=== PATIENT | male | born 1940 | race Caucasian/White ===

== ENCOUNTER → 2019-09-05 09:47 | Outpatient (CLI) | payer MEDICARE, SELFPAY ==
--- NOTE | 2019-09-05 09:52 | XR_ITS ---
PROCEDURE: XR CHEST AP CLINICAL HISTORY: Shortness of Breat Shortness of air, heart disease COMPARISON: CXR CHEST(2 VIEWS-NOT PORTABLE) from 08/19/2014 CXR CHEST(2 VIEWS-NOT PORTABLE) from 08/12/2015 CXR CHEST(2 VIEWS-NOT PORTABLE) from 08/17/2016 FINDINGS: Prior CABG. There is hyperinflation with hyperlucency of the lungs suggesting small airway disease which may be seen with COPD, asthma, or bronchitis. No lobar consolidation or collapse. There is soft tissue density adjacent to the cardiac apex on the left and may be related to pericardial fat pad. IMPRESSION: There is hyperinflation with hyperlucency of the lungs suggesting small airway disease which may be seen with COPD, asthma, or bronchitis. No change with no acute finding. Probable pericardial fat pad on the left which may be confirmed with follow-up Dictated by: Lazaro Kelly MD 09/05/2019 18:43 Electronically signed by Lazaro Kelly MD in [place] 09/05/2019 18:43
== END ==
PROVIDERS: PCP Emergency Medicine; Visit Provider Emergency Medicine
DX: Z09 Encounter for follow-up examination after completed treatment for conditions other than malignant neoplasm (principal); I10 Essential (primary) hypertension; N40.0 Benign prostatic hyperplasia without lower urinary tract symptoms
CPT/HCPCS: 71045

== ENCOUNTER → 2019-10-03 09:01 | Outpatient (CLI) | payer MEDICARE, SELFPAY ==
--- NOTE | 2019-10-03 09:04 | XR_ITS ---
PROCEDURE: XR CHEST AP CLINICAL HISTORY: Abnormal CXR COMPARISON: CXR CHEST(2 VIEWS-NOT PORTABLE) from 08/12/2015 CXR CHEST(2 VIEWS-NOT PORTABLE) from 08/17/2016 XR CHEST AP from 09/05/2019 FINDINGS: Median sternotomy/CABG. Normal heart size. No change in the faint density noted at the cardiac apex on the left consistent with pericardial fat. Lungs are clear otherwise. No acute bony abnormalities. IMPRESSION: No change with no acute finding Dictated by: Lazaro Kelly MD 10/03/2019 12:00 Electronically signed by Lazaro Kelly MD in [place] 10/03/2019 12:00
== END ==
PROVIDERS: PCP Emergency Medicine; Visit Provider Nurse Practitioner Family
DX: R93.89 Abnormal findings on diagnostic imaging of other specified body structures (principal)
CPT/HCPCS: 71045

== ENCOUNTER 2020-08-07 18:12 | Emergency (ER) | payer MEDICARE, SELFPAY ==
[2020-08-07 19:02] VITALS: BP 127/92; PULSE 72; RESP 18; TEMP 36.7; O2SAT 97; BMI 26.8
--- NOTE | 2020-08-07 19:18 | HMH.EDUTC ---
[facility] [place] Impression: Encounter for laboratory testing for COVID-19 virus Disposition: Home, Self-Care Condition on Discharge: Good Instructions: Preventing the Spread of Coronavirus Discharge Instructions Additional Instructions: *Monitor Temp, Over the counter Motrin or Tylenol as directed/as needed Tylenol every 4 hours and Motrin every 6 hours (as long as your family doctor has told you that you can take it) for fever or pain. and straight to ER if unable to lower temp less than 101.0 after medication given *Warm salt water gargles may help to soothe the throat *Throat Lozenges *Warm fluids like tea with honey may help to soothe the throat *Sleep elevated *Humidifier/Vaporizer Follow up IMMEDIATELY for new or worsening symptoms or no Noticeable improvement over the next 48-72 hours. 911 for difficulty breathing or swallowing You was tested for today for COVID19 your test result should be back later this evening, you may call back later this evening to see if your test results are back and the result You was given a handout with instructions for Self Quarantine and Self isolation for while you wait on test results and what to do if they are positive Referrals: Mykel Salgado MD [Primary Care Provider] - As needed Forms: Work/School Release Time of Disposition: 19:26 Medical Decision Making - Wily Inquiry Pt receiving controlled substance: No Wily was queried for this patient: No Vital Signs: 08/07/20 19:02 Temperature 98.0 F Temperature Source Oral Pulse Rate [Radial] 72 Respiratory Rate 18 Blood Pressure [Right Arm] 127/92 H Blood Pressure Mean [Right Arm] 103 Blood Pressure Source [Right Arm] Automatic Cuff Blood Pressure Position [Right Arm] Sitting 02 Sat by Pulse Oximetry 97 Oxygen Delivery Method Room Air Orders (Tests/Meds): ORDERS Category Date Time Status Covid-19 Nasal PCR ([facility]) Routine Lab 08/07/20 18:45 [place] [facility] [place] - General Stated complaint: COVID Test Time Seen by Provider: 08/07/20 19:18 Mode of Arrival: Ambulatory Source of Information: Patient Limitations: No Limitations Description of Symptoms (Recalled from Triage Doc. by RN): covid testing HEENT Symptoms (Recalled from RN notes): No Resp Symptoms (Recalled from RN notes): No Skin Symptoms (Recalled from RN notes): No MS Symptoms (Recalled from RN notes): No Functional Status (Recalled from RN notes): wnl - History of Present Illness Provider Complaint: Patient states that he was around someone on Tuesday that tested positive for COVID and he was worried and wanted to get tested States that he is not having any symptoms but still wanted to get tested - Related Data Home Medications Medication Instructions Recorded Confirmed aspirin 81 mg tablet,delayed 81 mg PO ONCE 12/12/17 09/05/18 release triamcinolone acetonide 55 mcg 2 spray INTRANASAL QHS 12/12/17 09/05/18 nasal spray aerosol ezetimibe 10 mg tablet PO #90 tab 09/05/19 Previous Rx's Medication Instructions Recorded alprazolam 0.25 mg tablet 0.25 mg PO BID #180 tab 10/03/18 paroxetine HCl 20 mg tablet 20 mg PO DAILY #10 tab 12/12/19 paroxetine HCl 20 mg tablet See Rx Instructions .ROUTE 12/12/19 .COMPLEX #90 tablet rosuvastatin 40 mg tablet 40 mg PO DAILY #90 tab 01/14/20 benazepril 20 mg tablet 20 mg PO DAILY #7 tab 02/14/20 benazepril 20 mg tablet 20 mg PO DAILY #90 tab 02/14/20 finasteride 5 mg tablet 5 mg PO DAILY #10 tab 05/09/20 finasteride 5 mg tablet See Rx Instructions .ROUTE 05/09/20 .COMPLEX #90 tab Allergies Allergy/AdvReac Type Severity Reaction Status Date / Time amoxicilin AdvReac Uncoded 09/05/19 08:33 - Worker's Comp Is this a Worker's Comp case?: No [facility] History - Hepatitis A Screen Drug use history?: No High risk sexual behaviors?: No History of sexually transmitted infection?: No Currently employed?: No Childcare worker?: No Do you have indoor plumbing?: Yes Do
[2020-08-07 19:49] VITALS: BP 127/92; PULSE 72; RESP 18; TEMP 36.7; O2SAT 98
== END 2020-08-07 19:50 | disposition home or self-care (01) ==
PROVIDERS: Emergency Provider Nurse Practitioner; PCP Emergency Medicine
DX: Z20.828 Contact with and (suspected) exposure to other viral communicable diseases (principal); I10 Essential (primary) hypertension; E78.5 Hyperlipidemia, unspecified; F33.1 Major depressive disorder, recurrent, moderate; Z79.899 Other long term (current) drug therapy
CPT/HCPCS: G0463; 99201; U0003

== ENCOUNTER → 2020-09-08 10:02 | Outpatient (CLI) | payer MEDICARE, SELFPAY ==
--- NOTE | 2020-09-08 10:06 | XR_ITS ---
PROCEDURE: XR CHEST 2V CLINICAL HISTORY: shortness of breath COMPARISON: CR CXR CHEST(2 VIEWS-NOT PORTABLE) from 08/17/2016 DX XR CHEST AP from 09/05/2019 CR XR CHEST AP from 10/03/2019 FINDINGS: Prior CABG. Normal heart size The lungs are clear without infiltrates, suspicious nodules, or pleural effusions. Mild degenerative changes thoracic spine. IMPRESSION: CABG. No change with no acute finding Dictated by: Lazaro Kelly MD 09/08/2020 10:32 Lazaro Kelly MD in [place] 09/08/2020 10:32
== END ==
PROVIDERS: PCP Emergency Medicine; Visit Provider Emergency Medicine
DX: R06.02 Shortness of breath (principal)
CPT/HCPCS: 71046

== ENCOUNTER 2020-09-12 14:29 | Emergency (ER) | payer MEDICARE, SELFPAY ==
[2020-09-12] VITALS (11 sets, daily range): BP systolic 96–169; BP diastolic 54–99; PULSE 56–89; RESP 12–20; TEMP 36.9; O2SAT 97–100; BMI 26.4
--- NOTE | 2020-09-12 14:37 | XR_ITS ---
PROCEDURE: XR WRIST LT MIN 3V CLINICAL INDICATION: fall Pain COMPARISON: No exams were available for comparison FINDINGS: Comminuted impacted fracture involves the distal radius with intra-articular involvement. There is dorsal angulation of the distal fracture fragment. There is dorsal displacement a dorsal fracture fragment with foreshortening of the fragment. 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 IMPRESSION: Comminuted fracture distal radius Dictated by: Lazaro Kelly MD 09/12/2020 15:43 Lazaro Kelly MD in [place] 09/12/2020 15:43
--- NOTE | 2020-09-12 14:38 | HMH.EDGENADL ---
ED Disposition Clinical Impression: Colles' fracture of left radius Qualifiers: Encounter type: initial encounter Fracture type: closed Qualified Code(s): S52.532A - Colles' fracture of left radius, initial encounter for closed fracture Disposition: Home, Self-Care Condition on Discharge: Good Instructions: DI for Moderate Sedation Additional Instructions: Follow-up with orthopedics on Tuesday. Leave splint in place. Do not drive when taking pain medication. Referrals: Mykel Salgado MD [Primary Care Provider] - 3 days Time of Disposition: 16:58 - Critical Care Critical Care Time: No Attestation: On , the high probability of a clinically significant, sudden or life threatening deterioration of the following system(s) required my full and direct attention, intervention and personal management. The time I documented below is in addition to time spent performing reported procedures but includes the following listed in this critical care notation. Medical Decision Making - Wily Inquiry Pt receiving controlled substance: No Wily was queried for this patient: No Vital Signs: 09/12/20 14:31 09/12/20 14:36 09/12/20 15:31 Pulse Rate [Radial] 70 78 Respiratory Rate 20 18 Blood Pressure [Right Arm] 169/82 H 158/67 H Blood Pressure Mean [Right Arm] 111 97 Blood Pressure Source [Right Arm] Automatic Cuff Automatic Cuff Blood Pressure Position [Right Arm] Sitting Sitting 02 Sat by Pulse Oximetry 97 98 Oxygen Delivery Method Room Air Nasal Cannula Oxygen Flow Rate (LPM) 3 09/12/20 15:45 09/12/20 15:50 09/12/20 15:55 Pulse Rate [Radial] 71 56 L 67 Respiratory Rate 16 17 18 Blood Pressure [Right Arm] 96/54 L 160/76 H 145/70 H Blood Pressure Mean [Right Arm] 68 104 95 Blood Pressure Source [Right Arm] Automatic Cuff Automatic Cuff Automatic Cuff Blood Pressure Position [Right Arm] Supine Supine Supine 02 Sat by Pulse Oximetry 97 97 99 Oxygen Delivery Method Room Air Nasal Cannula Nasal Cannula Oxygen Flow Rate (LPM) 2 2 09/12/20 16:01 09/12/20 16:04 09/12/20 16:12 Pulse Rate [Radial] 74 68 84 Respiratory Rate 18 18 18 Blood Pressure [Right Arm] 160/76 H 158/67 H 137/99 H Blood Pressure Mean [Right Arm] 104 97 111 Blood Pressure Source [Right Arm] Automatic Cuff Automatic Cuff Automatic Cuff Blood Pressure Position [Right Arm] Sitting Supine Sitting 02 Sat by Pulse Oximetry 97 98 99 Oxygen Delivery Method Nasal Cannula Room Air Nasal Cannula Oxygen Flow Rate (LPM) 3 2 09/12/20 16:30 Pulse Rate [Radial] 67 Respiratory Rate 16 Blood Pressure [Right Arm] 138/73 Blood Pressure Mean [Right Arm] 94 Blood Pressure Source [Right Arm] Automatic Cuff Blood Pressure Position [Right Arm] Sitting 02 Sat by Pulse Oximetry 100 Oxygen Delivery Method Nasal Cannula Oxygen Flow Rate (LPM) 3 Orders (Tests/Meds): ED MEDICATIONS Discontinued Medications Generic Name Dose Route Start Last Admin Trade Name Freq PRN Reason Stop Dose Admin Sodium Chloride 1,000 mls @ 999 mls/hr 09/12/20 15:45 09/12/20 15:30 Sod Chlor 0.9% 1000ml Bag IV 09/12/20 16:45 999 mls/hr .Q1H1M JAN Administration Morphine Sulfate 2 mg 09/12/20 15:35 09/12/20 15:30 Morphine 2mg/Ml Syringe IV 09/12/20 15:36 2 mg ONCE ONE Administration Ondansetron HCl 4 mg 09/12/20 15:35 09/12/20 15:30 Ondansetron 4mg/2ml Vial IV 09/12/20 15:36 4 mg ONCE ONE Administration Propofol 100 mg 09/12/20 15:45 09/12/20 16:00 Propofol 10mg/Ml 20ml Vial IV 09/12/20 15:46 100 mg ONCE ONE Administration ORDERS Category Date Time Status Wrist XR left 2 views [XR wrist LT 2V] Stat Exams 09/12/20 15:49 Taken - Radiology Data #1 Image(s): Wrist Image Reviewed: Yes I reviewed the patient's radiology results, Yes I reviewed the patient's radiology image Distal radius fracture with posterior angulation and compaction #2 Image(s): Wrist Postreduction film. Reduced angle posterior angulatio
--- NOTE | 2020-09-12 15:49 | XR_ITS ---
PROCEDURE: XR WRIST LT 2V....... September 12 2020 at 1612 hours Referring Doctor: Silver Tello Patient Age:79Y CLINICAL INDICATION: post reduction left wrist Left wrist fracture post reduction images COMPARISON: CR XR WRIST LT MIN 3V from 09/12/2020 FINDINGS: Cast is been placed after reduction/partial reduction of the comminuted fracture of the distal radius. Most evident fracture passes obliquely through the base of the radial styloid continuing to the articular surface There is also fracture involving the ulnar corner distal radius and anterior corner of corner distal radius with each of these fractures I believe passing to more central articular surface region. The initial severe dorsal tilt of the distal fracture fragments is improved somewhat on this post reduction image..-specifically for example there is less dorsal displacement of the lunate relative to the ulna and radius. The foreshortening of distal radius but is not as pronounced as was on the initial film earlier today. A fiberglass cast is now in place. Arthritic changes are seen noted at the 1st carpal-metacarpal joint and scaphoid-trapezium articulation. The initial film shows some inhomogeneous slight increased density at the proximal navicular with some suggestion of minimal degenerative cystic changes at central navicular. These features are obscured for the most part due to the overlying cast material on this study, but may benefit from follow-up as well. IMPRESSION: . Comminuted fractures at the distal radius, which extend to the articular surface . Improved positioning on on this post reduction study with fiberglass cast now in place Dictated by: Lui Dimas MD 09/13/2020 17:09 Lui Dimas MD in [place] 09/13/2020 17:09
--- NOTE | 2020-09-12 16:02 | PC.NURSE ---
XRAY HERE FOR POST REDUCTION FILM
--- NOTE | 2020-09-12 16:15 | PC.NURSE ---
1545- Proprofol given per MD 1600- patient is alert and oriented at this time. Splint in place.
== END 2020-09-12 17:17 | disposition home or self-care (01) ==
PROVIDERS: Emergency Provider Family Medicine; PCP Emergency Medicine
DX: S52.532A Colles' fracture of left radius, initial encounter for closed fracture (principal); W01.0XXA Fall on same level from slipping, tripping and stumbling without subsequent striking against object, initial encounter; Y92.017 Garden or yard in single-family (private) house as the place of occurrence of the external cause; I10 Essential (primary) hypertension
CPT/HCPCS: 29125; 73100; 73110; 96365; 96375; 99152; 99285; J2405

== ENCOUNTER → 2020-09-23 11:12 | Outpatient (CLI) | payer MEDICARE, SELFPAY ==
[2020-09-23 11:16] LABS: MANUAL DIFFERENTIAL MANUAL DIFFERENTIAL (MANUAL DIFF)
[2020-09-23 11:35] LABS: Basophils # 0.1 K/mm3 (0-0.2); Basophils % 0.8 % (0.1-2.0); Eosinophils # 0.2 K/mm3 (0.0-0.4); Eosinophils % 3.1 % (0.1-12.0); Hematocrit 39.8 % (42.0-52.0); Hemoglobin 13.5 g/dL (14.1-18.0); Lymphocytes # 1.8 K/mm3 (0.7-4.5); Lymphocytes % 27.7 % (10-50); Mean Corpuscular HGB Conc 33.9 g/dL (31.8-35.4); Mean Corpuscular Hemoglobin 31.4 pg (27.0-31.2); Mean Corpuscular Volume 92.5 fl (80-94); Mean Platelet Volume 8.2 fl (7.4-10.4); Monocytes # 0.6 K/mm3 (0.1-1.0); Monocytes % 9.8 % (1.7-9.3); Neutrophils # 3.7 K/mm3 (1.8-7.8); Neutrophils % 58.6 % (37.0-80.0); Platelet Count 325 K/mm3 (142-424); Red Cell Distribution Width 13.2 % (11.5-17.5); White Blood Count 6.3 K/mm3 (4.8-10.8)
[2020-09-23 12:21] LABS: Chloride 101 mmol/L (98-107); Potassium 4.9 mmoL/L (3.5-5.1); Sodium 139 mmol/L (136-145)
[2020-09-23 12:23] LABS: Blood Urea Nitrogen 17 mg/dl (9-20); Estimated Glomerular Filt Rate 72 ml/min (>60); GFR (African American) 87 ML/MIN (>60)
[2020-09-23 12:24] LABS: Alanine Aminotransferase 51 U/L (12-78); Albumin Level 4.3 g/dl (3.5-5.0); Albumin/Globulin Ratio 1.7 (1.1-1.8); Alkaline Phosphatase 49 U/L (38-126); Anion Gap 10.9 mEq/L (5-15); Aspartate Amino Transferase 60 U/L (17-59); Bilirubin,Total 0.9 mg/dl (0.2-1.3); Calcium 9.5 mg/dl (8.4-10.2); Carbon Dioxide 32 mmol/L (22.0-30.0); Globulin 2.5 g/dL (1.3-3.2); Glucose 86 mg/dl (74-100); Total Protein,Serum 6.8 g/dl (6.3-8.2)
[2020-09-23 13:07] LABS: Coronavirus 19 IgG Antibody Negative (Negative); Coronavirus 19 IgM Antibody Negative (Negative)
[2020-09-23 13:40] LABS: Eosinophils % 1 % (0-3); Lymphocytes % 18 % (10-50); Monocytes % 10 % (2-9); Neutrophils % 71 % (42-76); Platelet Estimate Normal; RBC Morphology Normal; Total Cells Counted 100
== END ==
PROVIDERS: Visit Provider Orthopaedic Surgery
DX: S62.102A Fracture of unspecified carpal bone, left wrist, initial encounter for closed fracture (principal); Z01.818 Encounter for other preprocedural examination; Z03.818 Encounter for observation for suspected exposure to other biological agents ruled out
CPT/HCPCS: 36415; 80053; 85007; 85014; 85018; 85048; 85049; 86328

== ENCOUNTER 2020-09-25 09:35 | Day surgery (SDC) | payer MEDICARE, SELFPAY ==
[2020-09-25] VITALS (12 sets, daily range): BP systolic 133–179; BP diastolic 57–109; PULSE 64–77; RESP 12–18; TEMP 36.4–43; O2SAT 93–99; BMI 26.8
--- NOTE | 2020-09-25 10:36 | P.PN_ITS ---
[facility] Anesthesia Checklist - Patient Identification Patient Identification: Arm Band, Verbal (Name & ) - Structural Data Admitted From: Home Planned Operative Procedure/s: orif wrist Consent for Planned Operative Procedure(s) Verified: Yes Verified Documents: History and Physical - NPO Status Verified Time NPO: 00:00 - Chart Verification Results Verified: CBC, BMP - Additional verifications Patient : No Anesthesia Reactions: No Hx Blood Transfusions: No Blood Transfusion Reaction: No Cephalosporin Allergy: No Previous Colonoscopy: No - Cardiovascular Assessment Heart Sounds: S1 & S2 Pulse Strength: Baseline Pulse Rhythm: Regular Peripheral Edema: No - Airway Assessment C-Spine Mobility Assessed: Yes TMJ Mobility Assessed: Yes Dentition: Good Dentition - Neurological Assessment Level of Consciousness: Awake, Alert, Appropriate Hx Seizures: No Numbness or tingling in extremities: No - Anesthesia Plan Anesthesia Risk discussed: Yes Anesthesia Plan: Verified ASA Class: III Anesthesia Type: General w/block [facility] History I have reviewed the patient's past medical history: Yes Medical History: Reports:: Coronary Artery Disease, Depression, Hyperlipidemia, Hypertension, 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 No: Pacemaker Amputation: No Fractures: Yes - *Social History Last grade of school completed: Advanced degree Smoking Status: Never smoker Alcohol Intake: never Substance Use Type: denies use *Occupational Status:: other Housing: house Household Members: spouse *Travel in the last 8 weeks: None - Psychiatric History Pschychiatric History:: Reports:: Depression Family Hx:: Hypertension, Hyperlipidemia, Coronary Artery Disease
--- NOTE | 2020-09-25 13:31 | XR_ITS ---
PROCEDURE: XR WRIST LT 2V CLINICAL INDICATION: ORIF WRIST IN OR COMPARISON: CR XR WRIST LT 2V from 09/12/2020 FINDINGS: Fluoroscopy time: 2 minutes and 25 seconds Initially an external fixator was placed at the 2nd metacarpal with reduction the impacted fracture with 2 K-wires placed with good alignment of the fracture fragments. Suggest postop film for confirmation. IMPRESSION: Status post ORIF comminuted distal radial fracture as described above Dictated by: Lazaro Kelly MD 09/25/2020 14:42 Lazaro Kelly MD in [place] 09/25/2020 14:42
--- NOTE | 2020-09-25 14:06 | HMH.ANESI ---
[facility] Anesthesia Record Part I Intake, IV Amount: 1,500 Estimated blood loss (mL): 0 Urine output (mL): 0 Blood Pressure: 170/90 SaO2: 94 Pulse Rate: 77 Respiratory Rate: 12 Temperature: 97.6 F Patient is:: Awake, Stable Stable to PACU at:: 14:05
--- NOTE | 2020-09-25 14:21 | XR_ITS ---
PROCEDURE: XR WRIST LT 2V CLINICAL INDICATION: s/p ORIF L DRF Follow-up ORIF COMPARISON: CR XR WRIST LT 2V from 09/12/2020 CR XR WRIST LT MIN 3V from 09/12/2020 FINDINGS: A dorsal bone plate has been placed with cortical screws in the 2nd metacarpal and in the mid radius. Two K-wires are present at the distal radial region with reduction the impacted radial fracture. There is good alignment. There is a cast in place. IMPRESSION: Status post ORIF distal radial fracture with good alignment Dictated by: Lazaro Kelly MD 09/25/2020 14:46 Lazaro Kelly MD in [place] 09/25/2020 14:46
--- NOTE | 2020-09-25 14:30 | HMH.OPNOTE ---
Date of procedure: 09/25/20 Pre-op Diagnosis:: LEFT distal radius fracture Post-op Diagnosis:: same Procedure performed:: closed reduction, dorsal bridge plating, percutaneous pinning LEFT distal radius fracture Surgeon:: Brooke Collier MD Airplane Tester(s):: NELY Knapp CEMENTER MACHINE APPLICATOR:: Mio Cait Anesthesia: regional, LMA Estimated blood loss (mL): 15 Clinical Note:: 79-year-old ambidextrous gentleman who sustained an injury to the left wrist on 09/12/2020. He tripped over a tool lying on the ground and fell with the outstretched left arm onto the ground, which was dirt. No open wounds but significant pain and swelling noted. He presented to the ER where a comminuted distal radius fracture was identified and reduced. He does not report any numbness or tingling in the fingers. He is a avid golfer and leads a very active lifestyle, and use of his hand/wrist is very important to him. I discussed treatment options with the patient, and as the fracture is significantly comminuted and intra-articular, with at least 3 main fracture fragments and very little articular bone distally, I felt surgical treatment is indicated. I discussed surgical fixation with the patient and I feel the best course of action to restore normal anatomic parameters and allow better long-term function is for dorsal bridge plating. I do not feel there is enough distal bone to accommodate a volar plate without failure. I discussed the risks of surgery with the patient, including but not limited to: bleeding, infection, wound healing complications such as incisional necrosis, nonunion, persistent pain despite surgery, postoperative stiffness, need for revision surgery, and risk of complex regional pain syndrome. I also explained the need for eventual plate removal after the fracture has healed. The patient vocalized understanding and provided informed consent for the procedure. Operative findings:: [employer] Geminus dorsal spanning plate (long plate) distal screws: 3.0mm x3 (2 non-locking, 1 locking) proximal screws: 3.0mm x3 (2 non-locking, 1 locking) 1.5mm K-wires x2 implanted, cut and buried under skin Operative note:: The patient was identified in preoperative holding and the left arm signed by myself. Consent was verified with the patient and all questions answered. He was seen by anesthesia and supraclavicular nerve block administered to the left upper extremity. The patient was then transferred to the OR and placed supine on the operative table with a hand table under the left upper extremity. All bony prominences were well-padded and SCDs placed on bilateral lower extremities. 900mg clindamycin was infused and general anesthesia induced with an LMA. Once the patient was asleep, his splint was removed and a nonsterile tourniquet placed on the upper left arm. The arm was then prepped and draped in the usual sterile fashion. Timeout was performed, identifying the correct patient, correct procedure, and correct site. The procedure was begun by bringing in the C-arm to confirm the site of the fracture in the left distal radius. A nice reduction had been performed in the emergency department at the time of his injury, so little manipulation of the arm was necessary to achieve overall normal gross alignment of the distal radius. The left arm was exsanguinated with an Esmarch and the tourniquet inflated to 250 mmHg. Three incisions were made, all longitudinal in line with the long axis of the left forearm. The first incisions was 3cm in length, over the dorsum of the hand centered over the index metacarpal shaft. Skin was incised and subcutaneous tissue bluntly dissected with tenotomy scissors, and a ragnell used to retract the extensor tendon ulnarly; this exposed the underlying index metacarpal shaft. The second incision was then made, 2cm in length, directly over the dorsum of the radiocarpal joint. Again, subcutaneous dissection was bluntly performed and the extensor re
--- NOTE | 2020-09-25 19:10 | P.PN_ITS ---
[facility] Anesthesia Record Part II Discharge Time: 14:41 Destination: Surgical Day Care (OP Surgery) PACU nurse assessment reviewed?: Yes Patient Condition:: Good Anesthesia Complications:: None Swallowing reflex intact?: Yes Cyanosis?: No Blood Pressure: 142/87 Pulse Rate: 71 Temperature: 97.6 F Mental Status: Alert & Oriented Pain level:: 0 Nausea and/or vomitting:: None Intake, IV Amount: 0
== END 2020-09-25 15:16 | disposition home or self-care (01) ==
LOC: OR 09:38
PROVIDERS: PCP Emergency Medicine; Visit Provider Orthopaedic Surgery
PROC: 0PSJ04Z Reposition Left Radius with Internal Fixation Device, Open Approach (ICD-10-PCS; CPT 25609; principal; 2020-09-25 11:30)
DX: S52.572A Other intraarticular fracture of lower end of left radius, initial encounter for closed fracture (principal); I25.10 Atherosclerotic heart disease of native coronary artery without angina pectoris; I10 Essential (primary) hypertension; E78.5 Hyperlipidemia, unspecified; Z79.899 Other long term (current) drug therapy; Z79.82 Long term (current) use of aspirin; Z88.0 Allergy status to penicillin; W01.0XXA Fall on same level from slipping, tripping and stumbling without subsequent striking against object, initial encounter; Y92.014 Private driveway to single-family (private) house as the place of occurrence of the external cause
CPT/HCPCS: 25609; 73100; 76000; 96374; C1713; C1776; J2405

== ENCOUNTER → 2020-10-07 09:46 | Outpatient (CLI) | payer MEDICARE, SELFPAY ==
--- NOTE | 2020-10-07 09:49 | XR_ITS ---
PROCEDURE: XR WRIST LT MIN 3V CLINICAL INDICATION: s/p ORIF DRF- dos: 09/25/20 Follow-up surgery/fracture COMPARISON: CR XR WRIST LT 2V from 09/12/2020 CR XR WRIST LT MIN 3V from 09/12/2020 CR XR WRIST LT 2V from 09/25/2020 FINDINGS: There is a cast in place. The dorsally placed bone plate is once again noted with good alignment of the distal radial fracture with [address]. Fracture site is still present and slightly more prominent. The joint spaces are well-preserved. No significant degenerative/arthritic changes. No erosive changes evident. Other findings:None. IMPRESSION: Good alignment distal radial fracture with [address] stabilized by dorsal bone plate Dictated by: Lazaro Kelly MD 10/07/2020 16:33 Lazaro Kelly MD in [place] 10/07/2020 16:33
== END ==
PROVIDERS: PCP Emergency Medicine; Visit Provider Orthopaedic Surgery
DX: S52.502A Unspecified fracture of the lower end of left radius, initial encounter for closed fracture (principal)
CPT/HCPCS: 73110

== ENCOUNTER 2020-10-07 10:46 | Outpatient (RCR) | payer MEDICARE, SELFPAY | END 2020-10-07 11:50 | disposition home or self-care (01) | LOC: OT 10:46 | PROVIDERS: Visit Provider Orthopaedic Surgery | DX: S52.502A Unspecified fracture of the lower end of left radius, initial encounter for closed fracture (principal) | CPT/HCPCS: 97763 ==

== ENCOUNTER → 2020-11-07 09:15 | Outpatient (CLI) | payer MEDICARE, SELFPAY ==
--- NOTE | 2020-11-07 09:21 | XR_ITS ---
PROCEDURE: XR WRIST LT MIN 3V CLINICAL INDICATION: ORIF LT DRF- DOS: 09/25/2020 COMPARISON: CR XR WRIST LT 2V from 09/12/2020 CR XR WRIST LT MIN 3V from 09/12/2020 CR XR WRIST LT 2V from 09/25/2020 CR XR WRIST LT MIN 3V from 10/07/2020 FINDINGS: The long dorsal bone plate from the distal radius to the 2nd metacarpal is once again noted. There are 2 K-wires at the distal radius which are unchanged. There is healing distal radial fracture with good alignment. Callus formation is noted developing. The cast has been removed. IMPRESSION: Good alignment status post ORIF as described above with healing distal radial fracture. Dictated by: Lazaro Kelly MD 11/07/2020 11:38 Lazaro Kelly MD in [place] 11/07/2020 11:38
== END ==
PROVIDERS: PCP Emergency Medicine; Visit Provider Orthopaedic Surgery
DX: S52.502A Unspecified fracture of the lower end of left radius, initial encounter for closed fracture (principal)
CPT/HCPCS: 73110

== ENCOUNTER → 2020-12-08 09:31 | Outpatient (CLI) | payer MEDICARE, SELFPAY ==
--- NOTE | 2020-12-08 09:37 | XR_ITS ---
PROCEDURE: XR WRIST LT MIN 3V CLINICAL INDICATION: s/p closed reduction with dorsal bridge plating Follow-up fracture COMPARISON: CR XR WRIST LT 2V from 09/12/2020 CR XR WRIST LT 2V from 09/25/2020 CR XR WRIST LT MIN 3V from 10/07/2020 CR XR WRIST LT MIN 3V from 11/07/2020 FINDINGS: A dorsal bridging bone plate is present with screws at the junction of the mid distal 3rd the radius the and at the 2nd metacarpal. There is good alignment of the distal radial fracture with 2 K-wires present. Fracture line is still visible. There is some developing callus formation noted. IMPRESSION: Good alignment healing distal radial fracture status post ORIF as described above Dictated by: Lazaro Kelly MD 12/08/2020 11:44 Lazaro Kelly MD in [place] 12/08/2020 11:44
== END ==
PROVIDERS: PCP Emergency Medicine; Visit Provider Orthopaedic Surgery
DX: S52.532A Colles' fracture of left radius, initial encounter for closed fracture (principal)
CPT/HCPCS: 73110

== ENCOUNTER → 2020-12-20 10:06 | Outpatient (CLI) | payer MEDICARE, SELFPAY ==
[2020-12-20 11:24] LABS: Coronavirus 19 IgG Antibody Positive (Negative); Coronavirus 19 IgM Antibody Negative (Negative)
== END ==
PROVIDERS: Visit Provider Internal Medicine Gastroenterology
DX: Z01.812 Encounter for preprocedural laboratory examination (principal)
CPT/HCPCS: 36415; 86328

== ENCOUNTER 2020-12-22 12:24 | Day surgery (SDC) | payer MEDICARE, SELFPAY ==
[2020-12-22 12:41] VITALS: BP 204/88; PULSE 74; RESP 18; TEMP 36; O2SAT 99; BMI 26.0
--- NOTE | 2020-12-22 13:19 | P.PN_ITS ---
[facility] Anesthesia Checklist - Patient Identification Patient Identification: Arm Band - Structural Data Planned Operative Procedure/s: Colonscopy Consent for Planned Operative Procedure(s) Verified: Yes - Additional verifications Anesthesia Reactions: No Hx Blood Transfusions: No Blood Transfusion Reaction: No - Cardiovascular Assessment Heart Sounds: S1 & S2 Pulse Strength: Baseline Pulse Rhythm: Regular - Neurological Assessment Level of Consciousness: Awake - Anesthesia Plan Anesthesia Risk discussed: Yes Anesthesia Plan: Verified Anesthesia Type: MAC [facility] History I have reviewed the patient's past medical history: Yes Medical History: Reports:: Coronary Artery Disease, Depression, Hyperlipidemia, Hypertension Denies:: Cancer, Diabetes Mellitus Type 1, Diabetes Mellitus Type 2, Internal Pacemaker, MRSA, Seizures *Have you ever received a pneumonia vaccine?: Yes *Have you received a flu vaccine this season?: Yes Other Medical History: Denies: Blood Transfusion Reaction Anesthesia experience/problems:: None Laterality Cases: Left: Other Other Surgeries: Yes: Cardiac Catheterization, Cardiac Surgery, Colonoscopy. No: Pacemaker Amputation: No Fractures: Yes (wrist) - *Social History Smoking Status: Never smoker Alcohol Intake: never Substance Use Type: denies use *Occupational Status:: retired Housing: house Household Members: spouse *Travel in the last 8 weeks: None - Psychiatric History Pschychiatric History:: Reports:: Depression Family Hx:: Hypertension, Hyperlipidemia, Coronary Artery Disease
--- NOTE | 2020-12-22 14:25 | P.PCN_ITS ---
[facility] Procedure Note Procedure Note:: Colonoscopy Procedure Report: Colonoscopy with cold snare polypectomy Endoscopist: Preet Mane II, MD Referring physician: Mykel Salgado MD Date of Procedure: December 22, 2020 Equipment: Olympus 190 variable stiffness pediatric colonoscope Sedation: MAC sedation Indication: Mr. Mead is an 80-year-old gentleman who states that recently he received the pneumonia 23 and COVID-19 shot and had a reaction that was primarily digestive. He received the vaccination on November 05 and had symptoms that began on November 06. He noted some low-grade fever and chills and mucus with his bowel movements. He developed diarrhea with minor rectal bleeding. He had a finger staph infection in 1976 or 1977 and had a penicillin shot which resulted in this similar reaction. The patient has returned to normal and reports normal bowel function. He reports no further rectal bleeding, abdominal pain or weight loss. He reports no family history of colon cancer. This is his third colonoscopy and his last colonoscopy was 4 years ago (2017 in [facility]) at which time a couple of benign polyps were removed. Procedure: Prior to the procedure, a history and physical exam was performed, and patient's medications and allergies were reviewed. The risks, benefits and alternatives of the sedation and procedure were discussed with the patient. All questions were answered and informed consent was obtained. The patient was brought to the procedure room. Patient identification and proposed procedure were verified by the physician and the nurse. The patient was placed in a left lateral decubitus position and the scope was passed under direct vision. Throughout the procedure, the patient's blood pressure, pulse, and oxygen saturations were monitored continuously. The colonoscopy was accomplished without difficulty. The patient tolerated the procedure well. Findings: On digital rectal examination there was normal rectal tone. There were no external hemorrhoids. The prostate was 2+, smooth, soft, symmetric without nodules. The colonoscope was introduced through the anal canal to the rectum and advanced to the cecum. The ileocecal valve and appendiceal orifice were identified. The scope was advanced a short distance into the ileum which appeared grossly normal. The scope was then withdrawn into the colon. There were 2 diminutive polyps (ascending x1 (4 mm) and descending x1 (3 mm)) which were both removed via cold snare polypectomy. The remaining cecum, ascending and transverse colon and mucosa were grossly normal. There were scattered diverticuli throughout the descending and sigmoid colon (LEFT colon). The rectum itself was normal. Upon retroflexion within the rectum there were grade 1-2 internal hemorrhoids. The preparation was excellent throughout with Channing Preparation Score of 9. The cecal time was 12 minutes. Impression: 1. Diminutive colonic polyps x2 2. Left-sided diverticulosis 3. Grade 1-2 internal hemorrhoids Plan: I will follow up the polyp histology. The patient will not require any further preventive/screening colonoscopy. I would encourage bulk fiber supplementation on a maintenance basis.
[2020-12-22 14:26] VITALS: BP 128/70; PULSE 65; RESP 14; TEMP 36.5; O2SAT 99
[2020-12-22 14:36] VITALS: BP 130/75; PULSE 59; RESP 18; O2SAT 100
[2020-12-22 14:46] VITALS: BP 133/82; PULSE 64; RESP 18; O2SAT 96
[2020-12-22 15:03] VITALS: BP 142/74; PULSE 55; RESP 18; O2SAT 100
== END 2020-12-22 15:09 | disposition home or self-care (01) ==
LOC: OUTP 12:26
PROVIDERS: PCP Emergency Medicine; Visit Provider Internal Medicine Gastroenterology
PROC: 0DJD8ZZ Inspection of Lower Intestinal Tract, Via Natural or Artificial Opening Endoscopic (ICD-10-PCS; CPT 45378; principal; 2020-12-22 13:30)
DX: Z86.19 Personal history of other infectious and parasitic diseases; Z86.010 Personal history of colon polyps; K63.5 Polyp of colon; K57.30 Diverticulosis of large intestine without perforation or abscess without bleeding; K64.0 First degree hemorrhoids; Z86.16 Personal history of COVID-19; Z87.01 Personal history of pneumonia (recurrent); I25.10 Atherosclerotic heart disease of native coronary artery without angina pectoris; I10 Essential (primary) hypertension; E78.5 Hyperlipidemia, unspecified; F32.9 Major depressive disorder, single episode, unspecified; Z79.899 Other long term (current) drug therapy
CPT/HCPCS: 45385; 88305

== ENCOUNTER → 2021-01-23 09:12 | Outpatient (CLI) | payer MEDICARE, SELFPAY ==
--- NOTE | 2021-01-23 09:18 | XR_ITS ---
PROCEDURE: XR WRIST LT MIN 3V CLINICAL INDICATION: s/p ORIF LT DRF Follow-up fracture/ORIF COMPARISON: CR XR WRIST LT 2V from 09/25/2020 CR XR WRIST LT MIN 3V from 10/07/2020 CR XR WRIST LT MIN 3V from 11/07/2020 CR XR WRIST LT MIN 3V from 12/08/2020 FINDINGS: There remains a dorsal bone plate stabilized at the mid and distal aspect the 2nd metacarpal and in the mid to distal shaft of the radius with cortical screws. There are 2 K-wires present within the distal radial fracture with good alignment. Fracture lines are less visible consistent with healing. There is some periosteal calcification along the medial aspect of the distal radius. Other findings:None. IMPRESSION: Healing fracture distal radius status post ORIF and pinning Dictated by: Lazaro Kelly MD 01/23/2021 13:12 Lazaro Kelly MD in [facility] 01/23/2021 13:12
== END ==
PROVIDERS: PCP Emergency Medicine; Visit Provider Orthopaedic Surgery
DX: S52.502A Unspecified fracture of the lower end of left radius, initial encounter for closed fracture (principal)
CPT/HCPCS: 73110

== ENCOUNTER → 2021-01-26 09:44 | Outpatient (CLI) | payer MEDICARE, SELFPAY ==
[2021-01-26 11:11] LABS: Coronavirus 19 IgG Antibody Positive (Negative); Coronavirus 19 IgM Antibody Negative (Negative)
== END ==
PROVIDERS: Visit Provider Orthopaedic Surgery
DX: S52.502A Unspecified fracture of the lower end of left radius, initial encounter for closed fracture (principal); Z01.818 Encounter for other preprocedural examination; Z20.822 Contact with and (suspected) exposure to COVID-19
CPT/HCPCS: 86328

== ENCOUNTER 2021-01-27 06:11 | Day surgery (SDC) | payer MEDICARE, SELFPAY ==
[2021-01-27 06:34] VITALS: BP 172/112; PULSE 69; RESP 18; TEMP 36.4; O2SAT 97; BMI 27.6
--- NOTE | 2021-01-27 08:32 | HMH.ANESCL ---
[facility] Anesthesia Checklist - Patient Identification Patient Identification: Arm Band - Structural Data Admitted From: Home Planned Operative Procedure/s: Left Wrist Hardware Removal Consent for Planned Operative Procedure(s) Verified: Yes Verified Documents: Surgical Consent, History and Physical - NPO Status Verified Time NPO: 00:00 - Additional verifications Anesthesia Reactions: No Hx Blood Transfusions: No Blood Transfusion Reaction: No - Airway Assessment C-Spine Mobility Assessed: Yes (mp2) TMJ Mobility Assessed: Yes Dentition: Good Dentition - Neurological Assessment Level of Consciousness: Awake, Alert - Anesthesia Plan Anesthesia Risk discussed: Yes Anesthesia Plan: Verified ASA Class: III Anesthesia Type: MAC w/Block [facility] History I have reviewed the patient's past medical history: Yes Medical History: Reports:: Coronary Artery Disease, Depression, Hyperlipidemia, Hypertension, MRSA (finger, buttock) Denies:: Cancer, Diabetes Mellitus Type 1, Diabetes Mellitus Type 2, Internal Pacemaker, Seizures *Have you ever received a pneumonia vaccine?: Yes *Have you received a flu vaccine this season?: Yes Other Medical History: Denies: Blood Transfusion Reaction Anesthesia experience/problems:: nac Laterality Cases: Left: Other Other Surgeries: Yes: Cardiac Catheterization, Cardiac Surgery, Colonoscopy. No: Pacemaker Amputation: No Fractures: Yes (wrist) - *Social History Last grade of school completed: Advanced degree Smoking Status: Never smoker Alcohol Intake: never Substance Use Type: denies use *Occupational Status:: retired Housing: house Household Members: spouse *Travel in the last 8 weeks: None - Psychiatric History Pschychiatric History:: Reports:: Depression Family Hx:: Heart Attack
[2021-01-27 08:52] VITALS: TEMP 43
[2021-01-27 09:13] VITALS: BP 132/65; PULSE 66; RESP 18; O2SAT 94
[2021-01-27 09:28] VITALS: BP 129/68; PULSE 60; RESP 18; O2SAT 95
[2021-01-27 09:43] VITALS: BP 128/71; PULSE 71; RESP 18; O2SAT 95
--- NOTE | 2021-01-27 10:56 | HMH.OPNOTE ---
Date of procedure: 01/27/21 Pre-op Diagnosis:: L distal radius fracture, healed Post-op Diagnosis:: L distal radius fracture, healed Procedure performed:: removal of hardware L wrist Surgeon:: Brooke Collier MD Pulverizer(s):: An Quinones GRADES 1 THRU 6 VISITING TEACHER:: George Covington Anesthesia: MAC, regional (supraclavicular nerve block) Estimated blood loss (mL): 5 Clinical Note:: 80-year-old gentleman who sustained a highly comminuted, intra-articular fracture of the left distal radius in September 2020. He underwent closed reduction with dorsal bridge plating on 09/25/2020. Since that time his fracture has gone on to heal well. We have discussed hardware removal, as the dorsal bridge plate is meant to internally span the wrist and restricts any motion of the wrist; it is always required that it be removed at a later date. As he has healed his fracture well and is 4 months postop, I recommend removal of hardware at this time. I discussed the risks of hardware removal with the patient, including bleeding, infection, neurovascular or tendon damage, possibility of refracture, loss of reduction if fracture incompletely healed, persistent pain and/or stiffness, and need for further procedures in the future. The patient vocalized understanding and provided informed consent for the procedure. Operative findings:: All indwelling hardware was removed, including a skeletal dynamics dorsal bridge plate x1, 6 screws, and 2 K wires. Operative note:: The patient was identified in preoperative holding and the left arm signed by myself. Consent was verified with the patient and all questions answered. He was seen by anesthesia and supraclavicular nerve block administered to the left upper extremity. The patient was then transferred to the OR and placed supine on the operative table with a hand table under the left upper extremity. All bony prominences were well-padded and SCDs placed on bilateral lower extremities. 900mg clindamycin was infused and MAC induced. Once the patient was sedated, a non-sterile tourniquet was placed on the upper left arm, which was then prepped and draped in the usual sterile fashion. Timeout was performed, identifying the correct patient, correct procedure, and correct site. The procedure was begun by bringing in the C-arm to confirm the site of the fracture in the left distal radius as well as all hardware. The distal radius fracture appeared to be well-healed. Previous incisions were identified and marked with a marking pen. The left arm was exsanguinated with an Esmarch and the tourniquet inflated to 250 mmHg. The first, most proximal forearm incision was incised with a 15 blade, using the prior incision. After the skin was incised, subcutaneous tissue was bluntly spread with tenotomy scissors, identifying the forearm extensor muscles/tendons. These were retracted radially and the proximal extent of the plate identified. 3 screws anchored the plate proximally, and all soft tissue was removed from the screw holes. The appropriate corresponding screwdriver was used to remove all 3 screws intact without any difficulty. Next, I moved to the distalmost incision, centered over the first metacarpal. This incision was opened again with a 15 blade and subcutaneous tissue bluntly dissected. The distal 3 screws in the plate were identified and removed intact and easily with a screwdriver. A [place] was slipped under the proximal portion of the plate and the forearm wound, and used to lift the plate off of the bone. The plate was then grasped with a hemostat and pulled through the proximal wound in its entirety, intact. To conclude the procedure, the 2 K wires located in the wrist were removed as well. The tip of each K wire was identified over the skin using C arm and a hemostat. Once the tip was identified, a small incision was made directly over the wire, which was then grasped with a hemostat and removed easily. All hardware then removed, final x-rays were
--- NOTE | 2021-01-27 11:16 | XR_ITS ---
PROCEDURE: XR FOREARM LT 2V CLINICAL INDICATION: LEFT FOREARM HARDWARE REMOVAL IN OR COMPARISON: No exams were available for comparison FINDINGS: Fluoroscopy time: 0.2 minutes CR utilized for removal of the dorsal bone plate at the 2nd metacarpal and radius as well asremoval of K-wires within the distal radius with good alignment. IMPRESSION: Interval removal of hardware as described above Dictated by: Lazaro Kelly MD 01/27/2021 17:00 Lazaro Kelly MD in [facility] 01/27/2021 17:00
== END 2021-01-27 10:20 | disposition home or self-care (01) ==
LOC: OR 06:12
PROVIDERS: PCP Emergency Medicine; Visit Provider Orthopaedic Surgery
DX: Z47.2 Encounter for removal of internal fixation device (principal); I25.10 Atherosclerotic heart disease of native coronary artery without angina pectoris; I10 Essential (primary) hypertension; Z79.899 Other long term (current) drug therapy
CPT/HCPCS: 20680; 73090; 76000; 96374

== ENCOUNTER → 2021-02-02 14:58 | Outpatient (CLI) | payer MEDICARE, SELFPAY ==
--- NOTE | 2021-02-02 15:03 | XR_ITS ---
PROCEDURE: XR WRIST LT MIN 3V CLINICAL INDICATION: s/p hardware removal Follow-up hardware removal COMPARISON: CR XR WRIST LT MIN 3V from 10/07/2020 CR XR WRIST LT MIN 3V from 11/07/2020 CR XR WRIST LT MIN 3V from 12/08/2020 CR XR WRIST LT MIN 3V from 01/23/2021 FINDINGS: S/p bone plate removal with screw hose at the distal aspect of the 2nd metacarpal and the midshaft of the radius. K-wires have been removed from the distal radius. Healing fracture is present with abundant callus formation at the distal radius. There is good alignment. There are mild osteoarthritic changes at the 1st metacarpal-carpal joint IMPRESSION: Status post hardware removal with healing distal radial fracture with good alignment Dictated by: Lazaro Kelly MD 02/02/2021 16:29 Lazaro Kelly MD in [facility] 02/02/2021 16:29
== END ==
PROVIDERS: PCP Emergency Medicine; Visit Provider Orthopaedic Surgery
DX: Z48.89 Encounter for other specified surgical aftercare (principal); M25.532 Pain in left wrist
CPT/HCPCS: 73110

== ENCOUNTER 2021-04-22 09:00 | Outpatient (RCR) | payer MEDICARE, SELFPAY ==
--- NOTE | 2021-02-04 09:20 | HMH.OTOPEV ---
OT Inpatient Evaluation Rehab OT Outpatient Eval Start: 02/04/21 09:09 Freq: Status: Active Protocol: Document 02/04/21 09:09 MINGLANCE (Rec: 02/04/21 09:17 [email or web address] [id number]) Electronically Signed By Daisha Gurrola OT 02/04/21 09:09 Outpatient Therapy Subjective History Subjective History Date of procedure: 01/27/21 Pre-op Diagnosis:: L distal radius fracture, healed Post-op Diagnosis:: L distal radius fracture, healed Procedure performed:: removal of hardware L wrist Surgeon:: Brooke Collier MD Probation Supervisor(s):: An Quinones MANAGER ICU:: George Covington Anesthesia: MAC, regional ( supraclavicular nerve block) Estimated blood loss (mL): 5 Clinical Note:: 80-year-old gentleman who sustained a highly comminuted, intra-articular fracture of the left distal radius in September 2020. He underwent closed reduction with dorsal bridge plating on 09/25/2020. Since that time his fracture has gone on to heal well. We have discussed hardware removal, as the dorsal bridge plate is meant to internally span the wrist and restricts any motion of the wrist; it is always required that it be removed at a later date. As he has healed his fracture well and is 4 months postop, I recommend removal of hardware at this time. I discussed the risks of hardware removal with the patient, including bleeding, infection, neurovascular or tendon damage , possibility of refracture, loss of reduction if fracture incompletely healed, persistent pain and/or stiffness, and need
== END 2021-04-22 09:05 | disposition home or self-care (01) ==
LOC: OT 09:00
PROVIDERS: PCP Emergency Medicine; Visit Provider Orthopaedic Surgery
DX: S52.572D Other intraarticular fracture of lower end of left radius, subsequent encounter for closed fracture with routine healing (principal)
CPT/HCPCS: 97010; 97014; 97110; 97140; 97164; 97165; 97530; G0283

== ENCOUNTER → 2021-09-15 14:31 | Outpatient (CLI) | payer MEDICARE, SELFPAY ==
[2021-09-15 14:48] LABS: Basophils % 0.6 % (0.1-2.0); Eosinophils # 0.2 K/mm3 (0.0-0.4); Eosinophils % 2.6 % (0.1-12.0); Hematocrit 39.2 % (42.0-52.0); Hemoglobin 13.9 g/dL (14.1-18.0); Lymphocytes # 1.3 K/mm3 (0.7-4.5); Mean Corpuscular HGB Conc 35.6 g/dL (31.8-35.4); Mean Corpuscular Hemoglobin 31.3 pg (27.0-31.2); Mean Corpuscular Volume 88.1 fl (80-94); Mean Platelet Volume 8.6 fl (7.4-10.4); Monocytes # 0.8 K/mm3 (0.1-1.0); Neutrophils # 5.2 K/mm3 (1.8-7.8); Neutrophils % 68.9 % (37.0-80.0); Platelet Count 307 K/mm3 (142-424); Red Blood Count 4.45 M/mm3 (4.60-6.20); Red Cell Distribution Width 12.9 % (11.5-17.5); White Blood Count 7.5 K/mm3 (4.8-10.8)
[2021-09-15 16:31] LABS: Alanine Aminotransferase 18 U/L (12-78); Albumin Level 4.2 g/dl (3.5-5.0); Albumin/Globulin Ratio 1.5 (1.1-1.8); Alkaline Phosphatase 65 U/L (38-126); Anion Gap 11.5 mEq/L (5-15); Aspartate Amino Transferase 44 U/L (17-59); Bilirubin,Total 1.1 mg/dl (0.2-1.3); Blood Urea Nitrogen 13 mg/dl (9-20); Calcium 9.5 mg/dl (8.4-10.2); Carbon Dioxide 31 mmol/L (22.0-30.0); Chloride 101 mmol/L (98-107); Chol/HDL Ratio 3.4 (1-3.5); Cholesterol 94 mg/dl (140-200); Estimated Glomerular Filt Rate 81 ml/min (>60); GFR (African American) 98 ML/MIN (>60); Globulin 2.8 g/dL (1.3-3.2); Glucose 87 mg/dl (74-100); HDL Cholesterol 28 mg/dl (40-60); Potassium 5.5 mmoL/L (3.5-5.1); Sodium 138 mmol/L (136-145); Triglycerides 117 mg/dl (30-150); VLDL Cholesterol 23 mg/dL (0-40)
[2021-09-15 16:43] LABS: Direct LDL Cholesterol 41.93 mg/dL (100-129)
[2021-09-15 16:47] LABS: Free T4 (Free Thyroxine) 1.02 ng/dl (0.78-2.19)
[2021-09-15 16:48] LABS: 25-OH Vitamin D, Total 46.3 ng/mL (30-100)
[2021-09-15 17:03] LABS: Prostate Specific Ag Screen 0.6 ng/ml (0.0-4.0)
[2021-09-15 17:53] LABS: Thyroid Stimulating Hormone 2.37 uIU/mL (0.465-4.68)
== END ==
PROVIDERS: Visit Provider Emergency Medicine
DX: I10 Essential (primary) hypertension (principal); Z12.5 Encounter for screening for malignant neoplasm of prostate; E55.9 Vitamin D deficiency, unspecified; Z20.828 Contact with and (suspected) exposure to other viral communicable diseases
CPT/HCPCS: 80053; 80061; 82306; 84439; 84443; 85025; G0103

== ENCOUNTER → 2021-09-30 14:40 | Outpatient (CLI) | payer MEDICARE, SELFPAY ==
[2021-09-30 15:26] LABS: Chloride 99 mmol/L (98-107); Sodium 137 mmol/L (136-145)
[2021-09-30 15:27] LABS: Potassium 4.5 mmoL/L (3.5-5.1)
[2021-09-30 15:29] LABS: Alanine Aminotransferase 23 U/L (12-78); Albumin Level 4.2 g/dl (3.5-5.0); Albumin/Globulin Ratio 1.6 (1.1-1.8); Alkaline Phosphatase 67 U/L (38-126); Anion Gap 11.5 mEq/L (5-15); Aspartate Amino Transferase 49 U/L (17-59); Calcium 8.8 mg/dl (8.4-10.2); Carbon Dioxide 31 mmol/L (22.0-30.0); Globulin 2.7 g/dL (1.3-3.2); Glucose 91 mg/dl (74-100); Total Protein,Serum 6.9 g/dl (6.3-8.2)
[2021-09-30 15:34] LABS: Blood Urea Nitrogen 12 mg/dl (9-20); Estimated Glomerular Filt Rate 81 ml/min (>60); GFR (African American) 98 ML/MIN (>60)
== END ==
PROVIDERS: Visit Provider Emergency Medicine
DX: N40.0 Benign prostatic hyperplasia without lower urinary tract symptoms (principal)
CPT/HCPCS: 80053

== ENCOUNTER → 2022-09-15 10:35 | Outpatient (CLI) | payer MEDICARE, SELFPAY ==
[2022-09-15 11:12] LABS: Basophils # 0.1 K/mm3 (0-0.2); Basophils % 1.1 % (0.1-2.0); Eosinophils # 0.1 K/mm3 (0.0-0.4); Eosinophils % 2.3 % (0.1-12.0); Hematocrit 47.1 % (42.0-52.0); Lymphocytes # 1.9 K/mm3 (0.7-4.5); Lymphocytes % 32.3 % (10-50); Mean Corpuscular HGB Conc 31.7 g/dL (31.8-35.4); Mean Corpuscular Hemoglobin 30.3 pg (27.0-31.2); Mean Corpuscular Volume 95.6 fl (80-94); Mean Platelet Volume 8.1 fl (7.4-10.4); Monocytes # 0.5 K/mm3 (0.1-1.0); Monocytes % 9.1 % (1.7-9.3); Neutrophils # 3.3 K/mm3 (1.8-7.8); Neutrophils % 55.3 % (37.0-80.0); Platelet Count 239 K/mm3 (142-424); Red Blood Count 4.93 M/mm3 (4.60-6.20); Red Cell Distribution Width 12.7 % (11.5-17.5); White Blood Count 5.9 K/mm3 (4.8-10.8)
[2022-09-15 12:00] LABS: Alanine Aminotransferase 27 U/L (12-78); Albumin Level 4.8 g/dl (3.5-5.0); Albumin/Globulin Ratio 1.8 (1.1-1.8); Alkaline Phosphatase 68 U/L (38-126); Aspartate Amino Transferase 49 U/L (17-59); Bilirubin,Total 1.5 mg/dl (0.2-1.3); Blood Urea Nitrogen 13 mg/dl (9-20); Carbon Dioxide 33 mmol/L (22.0-30.0); Chloride 103 mmol/L (98-107); Chol/HDL Ratio 2.8 (1-3.5); Cholesterol 101 mg/dl (140-200); Estimated Glomerular Filt Rate 72 ml/min (>60); GFR (African American) 87 ML/MIN (>60); Globulin 2.6 g/dL (1.3-3.2); Glucose 97 mg/dl (74-100); HDL Cholesterol 36 mg/dl (40-60); Sodium 140 mmol/L (136-145); Total Protein,Serum 7.4 g/dl (6.3-8.2); Triglycerides 108 mg/dl (30-150); VLDL Cholesterol 22 mg/dL (0-40)
[2022-09-15 12:11] LABS: Direct LDL Cholesterol 44.57 mg/dL (100-129)
[2022-09-15 12:16] LABS: Free T4 (Free Thyroxine) 0.77 ng/dl (0.78-2.19)
[2022-09-15 12:17] LABS: 25-OH Vitamin D, Total 32.5 ng/mL (30-100)
[2022-09-15 12:31] LABS: Prostate Specific Ag Screen 0.8 ng/ml (0.0-4.0); Thyroid Stimulating Hormone 3.18 uIU/mL (0.465-4.68)
== END ==
PROVIDERS: PCP Emergency Medicine; Visit Provider Emergency Medicine
DX: I10 Essential (primary) hypertension (principal); E55.9 Vitamin D deficiency, unspecified; Z12.5 Encounter for screening for malignant neoplasm of prostate; Z79.899 Other long term (current) drug therapy
CPT/HCPCS: 36415; 80053; 80061; 82306; 84439; 84443; 85025; G0103

== ENCOUNTER → 2023-02-16 09:42 | Outpatient (CLI) | payer MEDICARE, SELFPAY | PROVIDERS: PCP Emergency Medicine; Visit Provider Physician Assistant | DX: E78.5 Hyperlipidemia, unspecified (principal); I10 Essential (primary) hypertension; I25.10 Atherosclerotic heart disease of native coronary artery without angina pectoris; R94.31 Abnormal electrocardiogram [ECG] [EKG]; Z95.1 Presence of aortocoronary bypass graft | CPT/HCPCS: 93306 ==

== ENCOUNTER 2023-10-20 12:00 | Outpatient (CLI) | payer MEDICARE, SELFPAY ==
[2023-10-20 19:12] LABS: MANUAL DIFFERENTIAL MANUAL DIFFERENTIAL (MANUAL DIFF)
[2023-10-20 19:48] LABS: Basophils % 0.3 % (0.1-2.0); Eosinophils # 0.1 K/mm3 (0.0-0.4); Hemoglobin 14.5 g/dL (14.1-18.0); Lymphocytes # 1.6 K/mm3 (0.7-4.5); Lymphocytes % 29.6 % (10-50); Mean Corpuscular HGB Conc 34.4 g/dL (31.8-35.4); Mean Platelet Volume 8.4 fl (7.4-10.4); Monocytes # 0.6 K/mm3 (0.1-1.0); Monocytes % 10.4 % (1.7-9.3); Neutrophils # 3.1 K/mm3 (1.8-7.8); Neutrophils % 57.6 % (37.0-80.0); Platelet Count 202 K/mm3 (142-424); Red Blood Count 4.52 M/mm3 (4.60-6.20); Red Cell Distribution Width 13.3 % (11.5-17.5); White Blood Count 5.3 K/mm3 (4.8-10.8)
[2023-10-20 19:57] LABS: Alanine Aminotransferase 27 U/L (12-78); Albumin Level 4.2 g/dl (3.5-5.0); Albumin/Globulin Ratio 1.8 (1.1-1.8); Alkaline Phosphatase 49 U/L (38-126); Anion Gap 9.4 mEq/L (5-15); Aspartate Amino Transferase 48 U/L (17-59); Bilirubin,Total 0.9 mg/dl (0.2-1.3); Blood Urea Nitrogen 17 mg/dl (9-20); Calcium 8.8 mg/dl (8.4-10.2); Carbon Dioxide 28 mmol/L (22.0-30.0); Chloride 104 mmol/L (98-107); Chol/HDL Ratio 3.1 (1-3.5); Cholesterol 88 mg/dl (140-200); Estimated Glomerular Filt Rate 81 ml/min (>60); GFR (African American) 98 ML/MIN (>60); Globulin 2.4 g/dL (1.3-3.2); Glucose 118 mg/dl (74-100); HDL Cholesterol 28 mg/dl (40-60); Potassium 4.4 mmoL/L (3.5-5.1); Sodium 137 mmol/L (136-145); Total Protein,Serum 6.6 g/dl (6.3-8.2); Triglycerides 110 mg/dl (30-150); VLDL Cholesterol 22 mg/dL (0-40)
[2023-10-20 20:09] LABS: Direct LDL Cholesterol 48.26 mg/dL (100-129)
[2023-10-20 20:15] LABS: Eosinophils % 2 % (0-3); Lymphocytes % 34 % (10-50); Monocytes % 9 % (2-9); Neutrophils % 54 % (42-76); Total Cells Counted 100
[2023-10-20 20:16] LABS: Platelet Estimate Normal; RBC Morphology Normal
[2023-10-20 20:28] LABS: Prostate Specific Ag Screen 0.5 ng/ml (0.0-4.0); Thyroid Stimulating Hormone 2.61 uIU/mL (0.465-4.68)
== END 2023-10-20 23:59 ==
LOC: LAB.DROPOF 10-21 10:40
PROVIDERS: PCP Family Medicine; Visit Provider Family Medicine
DX: I10 Essential (primary) hypertension (principal); Z76.89 Persons encountering health services in other specified circumstances; Z12.5 Encounter for screening for malignant neoplasm of prostate; Z79.899 Other long term (current) drug therapy
CPT/HCPCS: 80053; 80061; 84443; 85007; 85014; 85018; 85048; 85049; G0103

== ENCOUNTER 2023-11-24 11:15 | Emergency (ER) | payer MEDICARE, SELFPAY ==
[2023-11-24 11:50] VITALS: BP 131/76; PULSE 81; RESP 18; TEMP 36.9; O2SAT 97; BMI 26.9
[2023-11-24 12:01] LABS: Coronavirus 19, PCR Not Detected (NotDetected); Influenza B, PCR Not Detected (NotDetected)
--- NOTE | 2023-11-24 12:14 | EXP.UTC ---
Discharge Plan Disposition Patient Disposition: Home, Self-Care Condition: Good Prescriptions Prescriptions: New azithromycin [Zithromax Z-Jose] 250 mg tablet See Rx Instructions .ROUTE .COMPLEX 5 Days Qty: 6 0RF Rx Instructions: For 250 mg dose pack: take 500 mg today (day 1), then 250 mg for 4 days (days 2-5) benzonatate 100 mg capsule 100 mg PO TID PRN (Reason: cough) Qty: 20 0RF methylprednisolone [Medrol (Jose)] 4 mg tablets,dose pack See Rx Instructions .Route .COMPLEX 6 Days Qty: 21 0RF Rx Instructions: taper pack; No Action aspirin [Adult Low Dose Aspirin] 81 mg tablet,delayed release (DR/EC) 81 mg PO ONCE paroxetine HCl 20 mg tablet See Rx Instructions .ROUTE .COMPLEX Qty: 90 3RF Dose Instruction: TAKE 1 TABLET DAILY Rx Instructions: TAKE 1 TABLET DAILY amlodipine-benazepril [Lotrel] 10-20 mg capsule 1 cap PO DAILY Qty: 90 3RF rosuvastatin 40 mg tablet See Rx Instructions .ROUTE .COMPLEX Qty: 90 3RF Dose Instruction: TAKE 1 TABLET DAILY FOR CHOLESTEROL Rx Instructions: TAKE 1 TABLET DAILY FOR CHOLESTEROL finasteride 5 mg tablet See Rx Instructions .ROUTE .COMPLEX Qty: 90 3RF Dose Instruction: TAKE 1 TABLET DAILY Rx Instructions: TAKE 1 TABLET DAILY ezetimibe 10 mg tablet See Rx Instructions .ROUTE .COMPLEX Qty: 90 3RF Dose Instruction: TAKE 1 TABLET DAILY FOR CHOLESTEROL Rx Instructions: TAKE 1 TABLET DAILY FOR CHOLESTEROL cetirizine 10 MG capsule 10 mg PO DAILY Referrals Follow up/Referrals: Robert Osborn MD [Primary Care Provider] - See instructions Activity Restrictions/Add. Instructions Additional Instructions/Restrictions: *Monitor Temp, Over the counter Motrin or Tylenol as directed/as needed Tylenol every 4 hours and Motrin every 6 hours (as long as your family doctor has told you that you can take it) for fever or pain. and straight to ER if unable to lower temp less than 101.0 after medication given *Warm salt water gargles may help to soothe the throat *Throat Lozenges? *Warm fluids like tea with honey may help to soothe the throat? *Sleep elevated *Humidifier/Vaporizer *Flonase 2 sprays in each nostril daily but be aware that it may take 2-3 days before you notice improvement *Bromfed may cause drowsiness. Know how it effects you (your child) before driving, caring for small child, or sending your child to school. Not other antihistamines/allergy medications while taking bromfed Your throat swab was sent for culture. Those results are typically sent to your primary care. Be sure to follow up in 2-3 days with your family doctor/primary care physician if no improvement so they can review those result and treat if necessary. If you don?t have a primary care doctor, I recommend you get one but in the mean time, you will have to return to a walk in clinic Follow up IMMEDIATELY for new or worsening symptoms or no Noticeable improvement over the next 48-72 hours. 911 for difficulty breathing or swallowing You were tested for today for flu/ COVID19 your test result should be back in the next few hours, you may check your results on the [facility] [employer] [facility] Portal if your COVID is positive you must Quarantine for 5 days Clinical Impressions Clinical Impression: Sinusitis Qualifiers: Sinusitis location: unspecified location Chronicity: unspecified Qualified Code(s): J32.9 - Chronic sinusitis, unspecified Instructions Patient Instructions: DI for Sinusitis, Sinusitis Discharge ED Provider: Silvina Antony [facility] [place] HPI General Stated complaint: head congestion, runny nose, cough, sweats Mode of Arrival: Ambulatory Source of Information: Patient Limitations: No Limitations Time Seen by Provider: 11/24/23 12:14 Description of Symptoms (Recalled from Triage Doc. by RN): Pt's symptom is just chest congestion. 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 and wanted to get tested for COVID because he didnt want to pass it on to them if he had it Related Data Home Medications Medication Instructions Recorded Confirmed aspirin 81 mg tablet,delayed 81 mg PO ONCE prevention 12/12/17 11/24/23 release (Adult Low Dose Aspirin) cetirizine 10 mg capsule 10 mg PO DAILY allergies 09/23/20 11/24/23 Previous Rx's Medication Instructions Recorded rosuvastatin 40 mg tablet See Rx Instructions .Route 03/28/23 .COMPLEX #90 tabs finasteride 5 mg tablet See Rx Instructions .Route 04/04/23 .COMPLEX #90 tabs ezetimibe 10 mg tablet See Rx Instructions .Route 06/09/23 .COMPLEX #90 tabs amlodipine 10 mg-benazepril 20 mg 1 cap PO DAILY #90 caps 10/20/23 capsule (Lotrel) paroxetine HCl 20 mg tablet See Rx Instructions .Route 10/20/23 .COMPLEX #90 tabs azithromycin 250 mg tablet See Rx Instructions PO .COMPLEX 5 11/24/23 (Zithromax Z-Jose) days #6 tabs benzonatate 100 mg capsule 100 mg PO TID PRN cough #20 caps 11/24/23 methylprednisolone 4 mg tablets in See Rx Instructions .Route 11/24/23 a dose pack (Medrol (Jose)) .COMPLEX 6 days #21 tabs Allergies Allergy/AdvReac Type Severity Reaction Status Date / Time amoxicillin Allergy Mild Verified 11/24/23 12:03 Worker's Comp Is this a Worker's Comp case?: No [facility] Disclaimer: The information contained in this section may have been updated after the patient was seen, as this information can be updated by other users. Medical History (Updated 11/24/23 @ 12:25 by Silvina Antony APRN) Abnormal electrocardiogram [ECG] [EKG] Coronary artery disease HLD (hyperlipidemia) Skin cancer (melanoma) Surgical History H/O heart bypass surgery History of coronary artery bypass graft History of surgery on left wrist Family History Other Diabetes Stroke Social History Smoking Status: Never smoker alcohol intake: never substance use type: denies use current occupational status: retired Travel in the last 8 weeks: None household members: spouse housing: house current occupational exposures/hazards: No caffeine: Yes ROS Obtained: Yes All systems reviewed & no additional complaints except as documented and Yes Systems reviewed as appropriate & no additional complaints except as documented Constitutional Constitutional: Reports system reviewed and no additional complaints, except as documented and Reports as per HPI ENT Ears, Nose, Mouth, and Throat: Reports system reviewed and no additional complaints, except as documented, Reports as per HPI, Reports sinus pain and Reports sinus pressure Cardiovascular Cardiovascular: Reports system reviewed and no additional complaints, except as documented and Reports as per HPI Respiratory Respiratory: Reports system reviewed and no additional complaints, except as documented, Reports as per HPI, Denies shortness of breath, Reports chest congestion and Reports cough (dry) Gastrointestinal Gastrointestingal: Reports system reviewed and no additional complaints, except as documented and as per HPI Physical Exam General General appearance: alert and in no apparent distress ENT ENT exam: Present mucous membranes moist Expanded ENT Exam TM/Canal exam: Bilateral TM: bulging (clear) Nose exam: Present sinus tenderness Respiratory Respiratory exam: Present normal lung sounds bilaterally; Absent respiratory distress or wheezes Cardiovascular Cardiovascular exam: Present regular rate, normal rhythm and normal heart sounds Neurological Exam Neurological exam: Present alert, oriented X3 and normal gait Medical Decision Making Wily Inquiry Pt receiving controlled substance: No Wily was queried for this patient: No Vital Signs: 11/24/23 11:50 Temperature 98.4 F Temperature Source Oral Pulse Rate [Right Radial] 81 Respiratory Rate 18 Blood Pressure [Right Arm] 131/76 Blood Pressure Mean [Right Arm] 94 Blood Pressure Source [Right Arm] Automatic Cuff Blood Pressure Position [Right Arm] Sitting 02 Sat by Pulse Oximetry 97 Oxygen Delivery Method Room Air Orders (Tests/Meds): ORDERS Category Date Time Status Rapid PCR Covid and Flu A/B Stat Lab 11/24/23 11:53 Received Medical Decision Narrative: Patient states that he has taken azithromycin and Medrol
[2023-11-24 12:32] VITALS: BP 131/76; PULSE 81; RESP 19; TEMP 36.9; O2SAT 97
[2023-11-24 13:26] LABS: Influenza A, PCR Detected (NotDetected)
== END 2023-11-24 12:32 | disposition home or self-care (01) ==
PROVIDERS: Emergency Provider Nurse Practitioner; PCP Family Medicine
DX: J32.9 Chronic sinusitis, unspecified (principal); R09.81 Nasal congestion; J34.89 Other specified disorders of nose and nasal sinuses; R05.9 Cough, unspecified; R61 Generalized hyperhidrosis; I25.10 Atherosclerotic heart disease of native coronary artery without angina pectoris; E78.5 Hyperlipidemia, unspecified; Z85.820 Personal history of malignant melanoma of skin
CPT/HCPCS: 87636; 99204; 99212; G0463

== ENCOUNTER 2023-12-21 20:47 | Outpatient (CLI) | payer MEDICARE, SELFPAY ==
[2023-12-21 18:46] LABS: Alanine Aminotransferase 28 U/L (12-78); Albumin Level 4.3 g/dl (3.5-5.0); Albumin/Globulin Ratio 1.7 (1.1-1.8); Alkaline Phosphatase 61 U/L (38-126); Anion Gap 10.6 mEq/L (5-15); Aspartate Amino Transferase 44 U/L (17-59); Bilirubin,Total 1.1 mg/dl (0.2-1.3); Blood Urea Nitrogen 15 mg/dl (9-20); Calcium 9.1 mg/dl (8.4-10.2); Carbon Dioxide 31 mmol/L (22.0-30.0); Chloride 100 mmol/L (98-107); Estimated Glomerular Filt Rate 81 ml/min (>60); GFR (African American) 98 ML/MIN (>60); Globulin 2.6 g/dL (1.3-3.2); Glucose 94 mg/dl (74-100); Potassium 4.6 mmoL/L (3.5-5.1); Sodium 137 mmol/L (136-145); Total Protein,Serum 6.9 g/dl (6.3-8.2)
[2023-12-21 18:54] LABS: NT Pro Brain Natriuretic Pep. 187 pg/mL (0-450)
== END 2023-12-21 23:59 ==
LOC: LAB.DROPOF 20:47
PROVIDERS: PCP Nurse Practitioner; Visit Provider Nurse Practitioner
DX: R60.0 Localized edema (principal); R06.02 Shortness of breath; Z79.899 Other long term (current) drug therapy
CPT/HCPCS: 80053; 83880

== ENCOUNTER 2025-02-08 09:00 | Outpatient (CLI) | payer MEDICARE, SELFPAY ==
--- OUTSIDE RECORDS SUMMARY | 2025-02-08 09:02 | XMS_ITS | Data Portability ---
Author Organization [facility] SIENNA RebolledoS BOWDLE CLOSED Address [address] [place] [address] Care Team Providers Care Carpenter Prototype Name Role Phone ANTIONE WYNN Primary Care Provider Assessment Encounter Date Assessment Date Assessment LastModified by Organization Details LastModified Time 11/26/2021 11/26/2021 -CAD CABG x4 (KELLY-LAD, SVG-OM1,sSVG- PDA, Joe GASTON, 03/2001) -Hyperlipidem ia -Hypertension Not available 11/26/2021 12:08:25 Plan of Treatment Reminders Order Date Submit Date Provider Last Modified By Organization Details Last Modified Time Details Appointments None recorded. Lab None recorded. Referral None recorded. Procedures None recorded. Surgeries None recorded. Imaging electrocar diogram 2020 [email or web address], [address] [place] [address], [phone], 1 11:43:38 electrocar diogram 2018 [email or web address] [place]u, [address] [place] [address], [phone], 9 12:35:21 Medication Orders rosuvastat in 40 mg tablet 2018 019 INTERFACE [facility], [address] [place], [address], 9 12:35:23 Patient TargetsNo targets recorded. Patient Instructions Encounter Date Encounter Id Patient Instructions Last Modified By Organization Details Last Modified Time 11/07/2017 [id number] elevated blood pressure: care instructions [email or web address] Not available 11/07/2017 13:48:19 high cholesterol : care instructions [email or web address] Not available 11/07/2017 13:48:19 RTC: 1 year with EKG [email or web address] Not available 11/07/2017 13:44:14 11/06/2018 [id number] elevated blood pressure: care instructions [email or web address] Not available 11/06/2018 12:35:21 high cholesterol : care instructions [email or web address] Not available 11/06/2018 12:35:21 2019 [id number] elevated blood pressure: care instructions [email or web address] Not available 2019 11:43:32 11/12/2020 [id number] elevated blood pressure: care instructions [email or web address] Not available 11/12/2020 11:36:12 11/26/2021 [id number] high blood pressure: care instructions Not available 11/26/2021 12:09:52 Reason for Referral None Reported. Results Created Date Observation Date Name Description Value Unit Range Abnormal Flag Note LastModifiedBy Organization Detail LastModifiedTime 11/07/19 19 11/06/2018 esvin desouza am No observ ation record ed. anaisilrcikie [facility] [address] [place] [address], [phone], 11/07/2018 11:03:40 11/17/19 21 11/12/2020 [facility] radha desouza am No observ ation record ed. anaisilrickie [facility] Cardiology [address] [place], [address], 11/17/2020 10:23:09 11/27/19 22 11/26/2021 elect radha desouza am No observ ation record ed. BARCODE Not Available 2021 13:50:04 Result Notes None recorded. Problems Name Problem SNOMED Code Status Onset Date Resolution Date Notes Provider Name and Address Organization Details Recorded Time Coronary arteriosc lerosis in [place] artery 15431374633 07 Active 2015 From Automated Load;Prov ider: Sartini, Jody;Stat us: Active Not Available [facility] 21:15:21 Hyperlipi demia 78819354 Active 2015 From Automated Load;Prov ider: Jody Juarez;Stat us: Active Not Available [facility] 21:15:21 Hypertens manuel disorder 47825943 Active 2017 Not Available [facility] 21:15:21 Dyslipide debbie 357222346 Active 2019 Not Available [facility] 21:15:21 Problem Notes None recorded. Procedures Surgical History Date Name Laterality Status Provider Name and Address Organization Details Recorded Time 11/26/19 EKG completed JESSICA VAZQUEZ PA-C [address] [place] [address], [phone], [facility] 11/26/2021 12:07:35 11/02/19 EKG completed JODY JUAREZ MD [address] [place] [address], [phone], [facility] 11/02/2016 13:47:01 03/28/20 Cardiac Surgery completed JODY JUAREZ MD [address] [place] [address], [phone], [facility] 11/07/2017 13:27:33 Other completed Tyra Short [place] [facility] 11/07/2017 13:10:12 Cardiac Catheterization completed JODY JUAREZ MD [address] [place] [address], [phone], [facility] 11/07/2017 13:27:38 Other completed Cynthia Peralta [facility] 10/28/2016 11:07:33 Other completed Cynthia Peralta [facility] 10/28/2016 11:07:49 Other completed Tyra Short [place] - [facility] 11/12/2020 11:12:02 Imaging Results Imaging Date Name Status LastModified by Organization Details LastModified Time 11/06/2018 electrocardiogram completed cr[facility] [address] [facility], [place], [address], 11/07/2018 11:03:40 11/12/2020 electrocardiogram completed cr[facility] [address], [place], [address], 11/17/2020 10:23:09 11/26/2021 electrocardiogram completed BARCODE Informa tion not available 11/27/2021 13:50:04 Procedure Notes None recorded. Medical Equipment None Reported. Allergies Allergen ID Allergen Name Allergen Category Reaction Reaction Severity Criticality Documentation Date Start Date Code Code System Note Provider Name and Address Organization Details Recorded Time 453784 Product containin g penicilli n (product) medicatio n Not available Not available Not available 09/09/20162013 48080 8001 SNOMED Comme nt: Creat ed By: Liz diasCre ated Date: 2013 1:24: 05 PM; Not Available [facility] 6 11:27:57 Medications Name Sig Start Date Stop Date Status Note LastModified by Organization Details LastModified Time Multiple Vitamin capsule Daily active Duration : 30 days;Danilo quency: daily;Me dication Descript ion: multivit ferrer; Dosage:1 ; Route:or al; refills: 3; Quantity :100 capsule Not Available Not Available Not Available Paxil 20 mg tablet Daily active Frequenc y: daily;Me dication Descript ion: paroxeti ne; Dosage:1 ; Route:or al; refills: 5; Quantity :30 tablet Not Available Not Available Not Available Zyrtec 10 mg tablet Daily active Frequenc y: daily;Me dication Descript ion: cetirizi ne; Dosage:1 ; Route:or al; refills: PRN 1 yr; Quantity :30 tablet Not Available Not Available Not Available alprazola m 0.25 mg tablet Three times a day active Duration : 10 days;Danilo quency: tid;Alt Frequenc y: prn;Medi cation Descript ion: alprazol am; Dosage:1 ; Route:or al; refills: 0; Quantity :20 Not Available Not Available Not Available simvastat in 20 mg tablet TAKE 1 TABLET DAILY AT BEDTIME 01/16 completed Not Available Not Available Not Available Nasacort 55 mcg/actua tion nasal spray Daily active Frequenc y: daily;Al t Frequenc y: prn;Medi cation Descript ion: triamcin olone; Route:na surya; refills: 0 Not Available Not Available Not Available aspirin 81 mg tablet Daily active Duration : 30 days;Danilo quency: daily;Me dication Descript ion: aspirin; Dosage:1 ; refills: 0; Quantity :30 Not Available Not Available Not Available finasteri de 5 mg tablet Daily 11/07 completed Frequenc y: daily;Me dication Descript ion: finaster enrique; Dosage:1 ; Route:or al; refills: 0 Not Available Not Available Not Available Lotensin 20 mg tablet Daily active Frequenc y: daily;Me dication Descript ion: benazepr il; Dosage:1 ; Route:or al; refills: PRN 1 yr; Quantity :30 tablet Not Available Not Available Not Available Zetia 10 mg tablet Take 1 tablet(s ) every day by oral route at bedtime. Must make appointm ent for further refills. 2022 active Not Available Not Available Not Avai lable dutasteri de 0.5 mg capsule Take 1 capsule every day by oral route. 11/01 completed Not Available Not Available Not Available rosuvasta tin 40 mg tablet TAKE 1 TABLET DAILY MUST SEE MD FOR FURTHER REEFILLS active Not Available Not Available No t Available ezetimibe 10 mg-simvas tatin 20 mg tablet Take 1 tablet every day by oral route. 11/07 completed Not Available Not Available Not Available finasteri de 5 mg daily active Not Available Not Available No t Available Fish Oil 300 mg-1,000 mg capsule,d elayed release Daily 11/01 completed Frequenc y: daily;Me dication Descript ion: omega-3 polyunsa turated fatty acids; Dosage:1 ; Route:or al; refills: 0 Not Available Not Available Not Available Vitals Date Recorded Body height Body mass index (BMI) Body weight Heart rate Systolic blood pressure Diastolic blood pressure Provider Name and Address Organization Details Last Updated DateTime 8 177.8 cm 28.6 kg/m2 16801.8 8 g 61 /min 132 mm[Hg] 82 mm[Hg] [facility] 8 13:11:34 Date Recorded Body height Body mass index (BMI) Body weight Heart rate Systolic blood pressure Diastolic blood pressure Provider Name and Address Organization Details Last Updated DateTime 9 177.8 cm 27.8 kg/m2 61823.9 2 g 69 /min 140 mm[Hg] 80 mm[Hg] [facility] 9 11:34:42 Date Recorded Body height Body mass index (BMI) Body weight Heart rate Oxygen saturation Oxygen saturation in Arterial blood by Pulse oximetry Systolic blood pressure Diastolic blood pressure Provider Name and Address Organization Details Last Updated DateTime 0 177.8 cm 28 kg/m2 56220.5 1 g 57 /min 94 % 94 % 126 mm[Hg] 86 mm[Hg] [facility] 0 11:32:27 Date Recorded Body height Body mass index (BMI) Body weight Heart rate Systolic blood pressure Diastolic blood pressure Provider Name and Address Organization Details Last Updated DateTime 1 177.8 cm 28.3 kg/m2 78467.7 g 70 /min 124 mm[Hg] 72 mm[Hg] [facility] 1 11:14:49 Date Recorded Body weight Body mass index (BMI) Body height Heart rate Oxygen saturation Oxygen saturation in Arterial blood by Pulse oximetry Systolic blood pressure Diastolic blood pressure Provider Name and Address Organization Details Last Updated DateTime 2 39334.9 2 g 27.8 kg/m2 177.8 cm 69 /min 98 % 98 % 140 mm[Hg] 70 mm[Hg] Katarzyna Yarbrough [facility] 2 11:26:21 Social History Question Answer Notes LastModified by Organizat ion Details LastModified Time Tobacco Smoking Status Never Smoker Cynthia hurd [facility] 10/28/2016 11:02:37 How Much Tobacco Do You Chew? None [email or web address] Information not available 11/06/2018 Do You Or Have You Ever Used E-cigarettes Or Vape? Never Used Electronic Cigarettes [email or web address] Information not available 2019 Marital Status Informatio n not available 11/06/2018 What Was The Date Of Your Most Recent Tobacco Screening? 11/26/2021 [email or web address] Information not available 11/26/2021 What Is Your Relationship Status? [email or web address] Information not available 11/26/2021 Do You Or Have You Ever Used Smokeless Tobacco? Never Used Smokeless Tobacco Information not available 2019 Have You Recently Traveled Abroad? No Information not available 11/26/2021 Sex: Unknown Functional Status None recorded. Mental Status None recorded. Family History Relationship Description Onset Age of this Age Resolved Age Notes LastModified by Organization Details LastModified Time Mother Pulmonary emphysema [email or web address] Not available 2017 13:09:23 Medical History Condition Response Diabetes N Rheumatic Fever N Bleeding Disorder N Atrial Fibrillation N Thyroid Disease N Hiatal hernia N AIDS/HIV N Tuberculosis N Black Lung N Cancer N Thyroid Problems N Stroke N Asthma N Lung Disease N Peripheral Vascular Disease N Nervous Illness Y Vascular Disease N Jaundice N Warfarin Management N Heart Disease Y Ulcers N Hypertension Y Immunizations Vaccine Type Date Status Note Provider Nam e and Address Organization Details Recorded Time Influenza, high-dose, trivalent, PF 07/17/2017 completed Not Available [facility] 2020 21:15:21 Past Encounters Encounter ID Performer Location Encounter Start Date Encounter Closed Date Diagnosis/Indication Diagnosis SNOMED-CT Code Diagnosis ICD10 Code Diagnosis Note [id number] JODY JUAREZ MD CARDIOLOG Y [address] [place], [place] [address] 11/02/2016 12:50:24 11/02/2016 14:03:32 Coronary arteriosclerosis in [place] artery 5971062585 107 I25.10 The patient is experienci ng no angina continues to be functional ly quite active. He requested change from Vytorin to simvastati n/Zetia due to improved cost using the non-combin ation drug. Medication changes, as well as new medication s were reviewed and discussed in detail including benefit and risk of therapy. The patient is otherwise doing well on current management . No new active problems identified . Chronic problems are all stable. Patient is to continue current regimen without change. All questions answered and regimen reviewed. Patient is to call for any change in status. [id number] JODY JUAREZ MD CARDIOLOG Y [address] [place] [address] 11/07/2017 12:55:21 11/07/2017 13:51:15 Coronary arteriosclerosis in [place] artery 4929124425 107 I25.10 Medication changes, as well as new medication s were reviewed and discussed in detail including benefit and risk of therapy. The patient is otherwise doing well on current management . No new active problems identified . Chronic problems are all stable. Patient is to continue current regimen without change. All questions answered and regimen reviewed. Patient is to call for any change in status. Hyperlipidemia 32267427 E78.5 Most recent testing reviewed. All laboratory measuremen ts in appropriat e parameters on current medical therapy. This was reviewed and discussed with the patient and all questions answered. Hypertensive disorder 38 953064 I10 stable, Blood pressure always normal at home. [id number] JODY JUAREZ MD CARDIOLOG Y [place] [address] [place] [address] 5 11/06/2018 11:25:36 11/06/2018 12:16:26 Coronary arteriosclerosis in [place] artery 3506001100 107 I25.10 Medication changes, as well as new medication s were reviewed and discussed in detail including benefit and risk of therapy. The patient is otherwise doing well on current management . No new active problems identified . Chronic problems are all stable. Patient is to continue current regimen without change. All questions answered and regimen reviewed. Patient is to call for any change in status. Hyperlipidemia 36300446 E78.5 LDL was not optimal. I recommend increasing his simvastati n to 40 mg daily and when this runs out to change to rosuvastat in 40 mg daily. Electronic prescripti on sent to patient's pharmacy. Hypertensive disorder 38 506456 I10 stable, Blood pressure always normal at home. [id number] JODY JUAREZ MD CARDIOLOG Y [place] [address] [place] [address] 2019 11:00:42 2019 11:46:29 Coronary arteriosclerosis in [place] artery 3296580471 107 I25.10 Medication changes, as well as new medication s were reviewed and discussed in detail including benefit and risk of therapy. The patient is otherwise doing well on current management . No new active problems identified . Chronic problems are all stable. Patient is to continue current regimen without change. All questions answered and regimen reviewed. Patient is to call for any change in status. Hypertensive disorder 38 855836 I10 stable, Blood pressure always normal at home. Dyslipidemia 092797229 E 78.5 Most recent testing reviewed. All laboratory measuremen ts in appropriat e parameters on current medical therapy. This was reviewed and discussed with the patient and all questions answered. [id number] JODY JUAREZ MD CARDIOLOG Y [address] [place] [address] 11/12/2020 10:48:47 11/12/2020 11:43:37 Coronary arteriosclerosis in [place] artery 1255492777 107 I25.10 Medication changes, as well as new medication s were reviewed and discussed in detail including benefit and risk of therapy. The patient is otherwise doing well on current management . No new active problems identified . Chronic problems are all stable. Patient is to continue current regimen without change. All questions answered and regimen reviewed. Patient is to call for any change in status. Hypertensive disorder 38 637320 I10 stable, Blood pressure always normal at home. Dyslipidemia 263344083 E 78.5 Most recent testing reviewed. All laboratory measuremen ts in appropriat e parameters on current medical therapy. This was reviewed and discussed with the patient and all questions answered. [id number] JESSICA VAZQUEZ PA-C CARDIOLOG Y [address] ,[address] [place], [place] [address] 11/26/2021 11:07:59 11/26/2021 13:43:30 Coronary arteriosclerosis 48419319 I25.10 The patient is doing well on current management . No new active problems identified . Chronic problems are all stable. Patient is to continue current regimen without change. All questions answered and regimen reviewed. Patient is to call for any change in statusDisc ussed surveillan ce Myoview stress test. Patient has now 21 years post CABG. He does exercise routinely without provocatio n of cardiac symptoms and his EKG is stable and unchanged. He will consider stress test and call otherwise follow back in 1 year with EKG Essential hypertension 14179266 I10 Outside labs reviewed. All are stable. Blood pressures stable. Patient checks blood pressures periodical ly and they are at goal Dyslipidemia 285066918 E 78.5 Labs reviewed and discussed with the patient. Lipid goals discussed with patient. (Total cholestero l less than 170, LDL less than 70. ) Continue heart healthy diet. Health Concerns Section Related Observation LastModified by Organization Detai ls LastModified Time None Recorded Concern Status LastModified by Organization Details LastModified Time None Recorded Advance Directives Directive None Recorded Payers Encounter Date Sequence Insurance Name Policy Number Policy Chang Covered Member ID Chang Member ID Guarantor Name 11/07/2017 1 [facility] (MEDICARE REPLACEMENT/A DVANTAGE - PPO) [id number] [place] [id number] Ritesh C [place] 11/06/2018 1 [facility] (MEDICARE REPLACEMENT/A DVANTAGE - PPO) [id number] [place] [id number] Ritesh C [place] 2019 1 [facility] (MEDICARE REPLACEMENT/A DVANTAGE - PPO) [id number] [place] [id number] Ritesh C [place] 11/12/2020 1 [facility] (MEDICARE REPLACEMENT/A DVANTAGE - PPO) [id number] [place] [id number] Ritesh C [place] 11/26/2021 1 [facility] (MEDICARE REPLACEMENT/A DVANTAGE - PPO) [id number] Ritesh [place] [id number] Ritesh C [place] Notes Date Note Type Note Provider Name and Address Organization Details Recorded Time 11/07/2017 text/html WM/CAD/OPCABG x 4 (KELLY-LAD, SVG-OM1, sSVG-PDA & dRCA (Joe) 03/28/2001). Comorbid: hyperlipidemia, hypertension.Th e patient denies angina, CHF, dyspnea, palpitations, orthopnea, PND or syncope.Outside labs brought by patient reviewed: Lipids okay. CMP normal. JODY JUAREZ MD [address] [place] [address], [phone], [facility] 11/07/2017 13:48:23 11/06/2018 text/html WM/CAD/OPCABG x 4 (KELLY-LAD, SVG-OM1, sSVG-PDA & dRCA (Joe) 03/28/2001). Comorbid: hyperlipidemia, hypertension. The patient denies angina, CHF, dyspnea, palpitations, orthopnea, PND or syncope. Outside labs brought by patient reviewed: Lipids okay. CMP normal. JODY JUAREZ MD [address] [place] [address], [phone], [facility] 11/06/2018 12:35:24 2019 text/html WM/CAD/OPCABG x 4 (KELLY-LAD, SVG-OM1, sSVG-PDA & dRCA ([place]) 03/28/2001). Comorbid: hyperlipidemia, hypertension. The patient denies angina, CHF, dyspnea, palpitations, orthopnea, PND or syncope. Outside labs brought by patient reviewed: Lipids okay. CMP normal. JODY JUAREZ MD [address] [place] [address], [phone], [facility] 2019 11:43:34 11/12/2020 text/html WM/CAD/OPCABG x 4 (KELLY-LAD, SVG-OM1, sSVG-PDA & dRCA ([place]) 03/28/2001). Comorbid: hyperlipidemia, hypertension. The patient denies angina, CHF, dyspnea, palpitations, orthopnea, PND or syncope. Outside labs brought by patient reviewed: Lipids okay. CMP normal. JODY JUAREZ MD [address] [place] [address], [phone], [facility] 11/12/2020 11:36:16 11/26/2021 text/html Larry ptWM/CAD/OPCABG x 4 (KELLY-LAD, SVG-OM1, sSVG-PDA & dRCA ([place]) 03/28/2001). Comorbid: hyperlipidemia, hypertension. The patient denies angina, CHF, dyspnea, palpitations, orthopnea, PND or syncope.Outside labs brought by patient reviewed: Lipids okay. CMP normal. JESSICA VAZQUEZ PA-C [address] [place] [address], [phone], [facility] 11/26/2021 12:10:06
[2025-02-08 09:16] LABS: Basophils % 0.5 % (0.1-2.0); Eosinophils # 0.1 Kmm3 (0.0-0.4); Eosinophils % 1.3 % (0.1-12.0); Hematocrit 39.2 % (42.0-52.0); Hemoglobin 13.4 g/dL (14.1-18.0); Lymphocytes # 1.7 K/mm3 (0.7-4.5); Lymphocytes % 27.2 % (10-50); Mean Corpuscular HGB Conc 34.2 g/dL (31.8-35.4); Mean Corpuscular Hemoglobin 31.9 pg (27.0-31.2); Mean Corpuscular Volume 93.3 fl (80-94); Mean Platelet Volume 8.9 fl (7.4-10.4); Monocytes # 0.8 K/mm3 (0.1-1.0); Monocytes % 12.7 % (1.7-9.3); Neutrophils # 3.6 K/mm3 (1.8-7.8); Nucleated Red Blood Cells # 0 10^3/uL; Nucleated Red Blood Cells % 0 %; Platelet Count 184 K/mm3 (142-424); Red Cell Distribution Width 12.4 % (11.5-17.5); Red Cell Distribution Width-SD 42.4 fL; White Blood Count 6.2 K/mm3 (4.8-10.8)
[2025-02-08 09:29] LABS: Albumin Level 4.3 g/dl (3.5-5.0); Chloride 104 mmol/L (98-107); Potassium 4.7 mmoL/L (3.5-5.1); Sodium 140 mmol/L (136-145)
[2025-02-08 09:31] LABS: Alanine Aminotransferase 31 U/L (12-78); Anion Gap 9.7 mEq/L (5-15); Aspartate Amino Transferase 48 U/L (17-59); Blood Urea Nitrogen 12 mg/dl (9-20); Carbon Dioxide 31 mmol/L (22.0-30.0); Estimated Glomerular Filt Rate 71 ml/min (>60); GFR (African American) 86 ML/MIN (>60)
[2025-02-08 09:32] LABS: Albumin/Globulin Ratio 1.3 (1.1-1.8); Alkaline Phosphatase 51 U/L (38-126); Bilirubin,Total 1.2 mg/dl (0.2-1.3); Calcium 8.8 mg/dl (8.4-10.2); Cholesterol 92 mg/dl (140-200); Globulin 3.2 g/dL (1.3-3.2); Glucose 97 mg/dl (74-100); HDL Cholesterol 32 mg/dl (40-60); Total Protein,Serum 7.5 g/dl (6.3-8.2); Triglycerides 149 mg/dl (30-150); VLDL Cholesterol 30 mg/dL (0-40)
[2025-02-08 09:33] LABS: Chol/HDL Ratio 2.9 (1-3.5)
[2025-02-08 09:43] LABS: Direct LDL Cholesterol 33.23 mg/dL (100-129)
[2025-02-08 10:03] LABS: Thyroid Stimulating Hormone 2.85 uIU/mL (0.465-4.68)
[2025-02-08 10:25] LABS: Prostate Specific Ag Screen 0.6 ng/ml (0.0-4.0)
== END 2025-02-08 23:59 | disposition home or self-care (01) ==
LOC: LAB 09:00
PROVIDERS: PCP Family Medicine; Visit Provider Family Medicine
DX: Z00.00 Encounter for general adult medical examination without abnormal findings (principal); E78.5 Hyperlipidemia, unspecified; I10 Essential (primary) hypertension; N40.0 Benign prostatic hyperplasia without lower urinary tract symptoms; R53.83 Other fatigue; Z12.5 Encounter for screening for malignant neoplasm of prostate
CPT/HCPCS: 36415; 80053; 80061; 84443; 85025; G0103